=== PATIENT | female | born 1985 | race Caucasian/White ===

== ENCOUNTER 2024-04-26 21:14 | Outpatient (REF) | payer OTHER, SELFPAY ==
[2024-05-02 11:09] LABS: Age Gdln ACOG Testing Note (.); HPV Aptima Negative (Negative); IGP, Aptima HPV, rfx 16/18,45 Note (.)
== END 2024-04-26 21:15 | disposition home or self-care (01) ==
LOC: LAB 21:14
PROVIDERS: Visit Provider Obstetrics & Gynecology
DX: Z01.419 Encounter for gynecological examination (general) (routine) without abnormal findings (principal)
CPT/HCPCS: 87624; 88175

== ENCOUNTER 2024-09-05 16:20 | Outpatient (OUT) | payer OTHER, SELFPAY ==
--- NOTE | 2024-09-05 | MM_ITS ---
Patient Name: REI DAVIS MR#: [id number] : 1985 Exam Date: 09/05/2024 Ordering Doctor: DR Eric Morales . RADIOLOGY REPORT PROCEDURE: MM TOMOSYNTHESIS SCREENING BI COMPARISON: None. INDICATIONS: Screening mammogram Calculator Name NCI Breast Cancer Risk Assessment Tool 5 Year Breast Cancer Risk 0.80% Lifetime Breast Cancer Risk 13.60% Personal Breast Cancer No Personal Ovarian Cancer No Treatments None Family Cancers Grandmother-paternal with breast cancer at age ~83. LOCATION: [facility] BREAST COMPOSITION: There are scattered areas of fibroglandular density. FINDINGS: DIAGNOSTIC CATEGORY 1--NEGATIVE. Scattered benign-appearing calcifications are present. Scattered benign-appearing lymph nodes are present. RIGHT BREAST: No significant suspicious finding. LEFT BREAST: No significant suspicious finding. RECOMMENDATIONS: ROUTINE MAMMOGRAM AND CLINICAL EVALUATION IN 12 MONTHS. PLEASE NOTE: A NORMAL MAMMOGRAM DOES NOT EXCLUDE THE POSSIBILITY OF BREAST CANCER. A CLINICALLY SUSPICIOUS PALPABLE LUMP SHOULD BE BIOPSIED. Dictated by: Tigre Polanco MD on 09/06/2024 at 09:04 Approved by: Tigre Polanco MD on 09/06/2024 at 09:05
== END 2024-09-05 16:21 | disposition home or self-care (01) ==
LOC: MAMMO 16:20
PROVIDERS: Visit Provider Obstetrics & Gynecology
DX: Z12.31 Encounter for screening mammogram for malignant neoplasm of breast (principal); Z80.3 Family history of malignant neoplasm of breast
CPT/HCPCS: 77063; 77067

== ENCOUNTER 2025-09-13 16:18 | Outpatient (OUT) | payer OTHER, SELFPAY ==
--- NOTE | 2025-09-13 16:20 | MM_ITS ---
Patient Name: REI DAVIS MR#: [id number] : 1985 Exam Date: 09/13/2025 Ordering Doctor: DR GIGI MARR . RADIOLOGY REPORT PROCEDURE: MM TOMOSYNTHESIS SCREENING BI COMPARISON: MM TOMOSYNTHESIS SCREENING BI, 09/05/2024. INDICATIONS: Screening for malignant neoplasm Calculator Name NCI Breast Cancer Risk Assessment Tool 5 Year Breast Cancer Risk 0.80% Lifetime Breast Cancer Risk 13.50% Personal Breast Cancer No Personal Ovarian Cancer No Treatments None Family Cancers Grandmother-paternal with breast cancer at age ~83. LOCATION: [facility] BREAST COMPOSITION: There are scattered areas of fibroglandular density. FINDINGS: RIGHT BREAST: No significant suspicious finding. Benign-appearing calcifications noted. LEFT BREAST: No significant suspicious finding. DIAGNOSTIC CATEGORY 2--BENIGN FINDING. NO CHANGE FROM COMPARISON. RECOMMENDATIONS: ROUTINE MAMMOGRAM AND CLINICAL EVALUATION IN 12 MONTHS. Dictated by: Srinivas Patricio MD on 09/14/2025 at 11:13 Approved by: Srinivas Patricio MD on 09/14/2025 at 11:29
--- OUTSIDE RECORDS SUMMARY | 2025-09-13 16:22 | XMS_ITS | Encounter Summary ---
Author Organization [facility] Address [address] [place] [address] Care Team Providers Care Floater Operator Name Role Phone Ursula Ascencio MD Primary Care Provider [phone] Reason for Visit * ReasonCommentsMed Refill Encounter Details DateTypeDepartmentCare Team (Latest Contact Info)Imrgsvwpyvq29/05/2025Refill [facility] [address] [place] [address] Celi Zaldivar NP [address] [place] [address] GRICELDA (generalized anxiety disorder) Social History Tobacco UseTypesPacks/DayYears UsedDateSmoking Tobacco: NeverSmokeless Tobacco: NeverAlcohol UseStandard Drinks/WeekCommentsYes1 (1 standard drink = 0.6 oz pure alcohol)caffeine intake : 1-2 cups per [id number] Health LiteracyAnswerDate RecordedHow often do you need to have someone help you when you read instructions, pamphlets, or other written material from your doctor or pharmacy? Never08/01/2024Humiliation, Afraid, Rape, and Kick questionnaireAnswerDate RecordedWithin the last year, have you been afraid of your partner or ex-partner?No07/11/2023Within the last year, have you been humiliated or emotionally abused in other ways by your partner or ex-partner?No07/11/2023 Within the last year, have you been kicked, hit, slapped, or otherwise physically hurt by your partner or ex-partner?No07/11/2023Within the last year, have you been raped or forced to have any kind of sexual activity by your part ner or ex-partner?No07/11/2023Social Connection and Isolation PanelAnswerDate RecordedIn a typical week, how many times do you talk on the phone with family, friends, or neighbors?More than three times a week08/01/2024How often do you get together with friends or relatives?Once a week08/01/2024How often do you attend religion or baptism services?1 to 4 times per year08/01/2024o you belong to any clubs or organizations such as religion groups, unions, fraternal or athletic olaf ups, or school groups?No08/01/2024How often do you attend meetings of the clubs or organizations you belong to?Never08/01/2024re you , , , , never , or living with a partner?Zopoyto7508/01/2024 AUDIT-CAnswerDate RecordedQ1: How often do you have a drink containing alcohol? 2-4 times a month08/01/2024Q2: How many drinks containing alcohol do you have on a typical day when you are drinking?1 or Q3: How often do you have six or more drinks on one occasion?Less than xvzpqny7208/01/2024Overall Financial Resource Strain (CARDIA)AnswerDate RecordedHow hard is it for you to pay for the very basics like food, housing, medical care, and heating?Not hard at all 08/01/2024HQ-2AnswerDate RecordedPatient Health Questionnaire-2 Score0 02/12/2025[facility] [place] [facility] - Occupational Stress QuestionnaireAnswerDate RecordedDo you feel stress - tense, restless, nervous, or anxious, or unable to sleep at night because yourmind is troubled all the time - these days?Only a bgzowp6708/01/2024Exercise Vital SignAnswerDate Recorded On average, how many days per week do you engage in moderate to strenuous exercise (like a brisk walk)?3 days08/01/2024On average, how many minutes do you engage in exercise at this level?20 min08/01/2024Hunger Vital SignAnswerDate RecordedWithin the past 12 months, you worried that your food would run out before you got the money to buymore.Never true08/01/2024Within the past 12 months, the food you bought just didn't last and you didn't have money to get more.Never true08/01/2024RAPARE - TransportationAnswerDate RecordedIn the past 12 months, has lack of transportation kept you from medical appointments or from getting medications?No08/01/2024In the past 12 months, has lack of transportation kept you from meetings, work, or from getting things needed for daily living?No08/01/2024Housing Stability Vital SignAnswerDate RecordedIn the last 12 months, was there a time when you were not able to pay the mortgage or rent on time?No07/11/2023In the last 12 months, how many places have you lived?1 07/11/2023In the last 12 months, was there a time when you did not have a steady place to sleep or slept in [facility] (including now)?No07/11/2023Housing Stability Vital SignAnswerDate RecordedIn the last 12 months, was there a time when you were not able to pay the mortgage or rent on time?No08/01/2024Number of Times Moved in the Last YearNot on file08/01/2024t any time in the past 12 months, were you homeless or living in a fdc (including now)?No08/01/2024 CommentsNoSex and Gender InformationValueDate RecordedSex Assigned at BirthNot on fileLegal NsyHcrfal40/15/2023 7:05 PM EDTGender IdentityFemale 05/30/2023 1:59 PM EDTSexual OrientationNot on filedocumented as of this encounter Plan of Treatment DateTypeDepartmentCare Team (Latest Contact Info)Ntmuypvtici65/18/2026 3:00 PM EDTProcedure Visit [facility] [address] [place] [id number] Eric Morales DO [address] [place] [address] documented as of this encounter Visit Diagnoses Diagnosis GRICELDA (generalized anxiety disorder) Generalized anxiety disorder documented in this encounter Care Teams Team MemberRelationshipSpecialtyStart DateEnd Ursula Ascencio MD [address] [place] [address] PCP - GeneralFamily Medicine03/02/23documented as of this encounter
--- OUTSIDE RECORDS SUMMARY | 2025-09-13 16:22 | XMS_ITS | Clinical Summary ---
Author Organization [facility] Address [address] [place] [address] Care Team Providers Care Parts Counterman Name Role Phone Ursula Ascencio MD Primary Care Provider [phone] Allergies No known active allergies Medications MedicationSigDispense QuantityRefillsLast FilledStart DateEnd DateStatus Atogepant (Qulipta) 60 MG tablet Indications:Migraine with aura and without status migrainosus, not intractable Take 1 tablet by mouth Daily 90 tablet 5Active sertraline (Zoloft) 25 MG tablet Indications:GRICELDA (generalized anxiety disorder)Take 1 tablet (25 mg) by mouth Daily 90 tablet 6Active sertraline (Zoloft) 25 MG tablet Indications:GRICELDA (generalized anxiety disorder)Take 1 tablet (25 mg) by mouth Daily 30 tablet Discontinued Tirzepatide-Weight Management (Zepbound) 15 MG/0.5ML solution Indications:BMI 31.0-31.9,adultInject 15 mg under the skin 1 (one) time per week for 28 days 2 mL Expired Ubrogepant (Ubrelvy) 100 MG tablet Indications:Migraine with aura and without status migrainosus, not intractable Take 100 mg by mouth if needed (migraines) for up to 13 days 13 tablet Expired Active Problems ProblemNoted DateDiagnosed DateGAD (generalized anxiety disorder)07/12/2023 Yblesjylfyuxdsf11/18/2023Migraine with aura and without status migrainosus, not ywvtcivjsaw82/18/2023Morbid tlfiehw8507/12/2023atellofemoral disorder of right knee07/12/20232887Tienkpdxwwn08/18/2023Right anterior knee pain07/12/2023Stage 3a chronic kidney kjqwwyg8907/12/2023 Encounters DateTypeDepartmentCare VlaxLzclogrubwq15/05/2025Refill [facility] [address] [place] [address] Celi Zaldivar NP GRICELDA (generalized anxiety disorder)08/13/2025Telephone [facility] [address] [place] [address] Deirdre Delgado Prior Mixdtkwwoxlow52/14/2025Orders Only [facility] [address] [place] [address] Celi Zaldivar NP Elevated alkaline phosphatase level (Primary Dx)08/07/2025Results Follow-Up [facility] [address] [place] [address] Celi Zaldivar NP [facility] VITAMIN D 25 RLDHZQZ47/13/2025Clinisync Result Encounter [facility] External Department Unsolicited Celi Zaldivar NP 08/03/2025Results Follow-Up [facility] [address] [place] [phone] Celi Zaldivar NP [facility] CMP, [facility] GGT, [facility] EGFR08/03/2025Refill [facility] [address] [place] [address] Ursula Ascencio MD Migraine with aura and without status migrainosus, not intractable (Primary Dx) 5Clinisync Result Encounter [facility] External Department Unsolicited Celi Zaldivar NP 08/03/2025Results Follow-Up [facility] [address] [place] [phone] Celi Zaldivar, JARETT Comprehensive metabolic panel, Lipid panel, TSH RFX ON ABNORMAL TO FREE T4, Additional followed-up results: Orders Only [facility] [address] [place] [address] Celi Zaldivar NP BMI 31.0-31.9,adult (Primary Dx)07/27/2025 1:40 PM EDTOffice Visit [facility] [address] [place] [address] Celi Zaldivar NP Fever, unspecified fever cause (Primary Dx); Body aches; Flu-like symptoms; BMI 31.0-31.9,adult; Nonintractable headache, unspecified chronicity pattern, unspecified headache type; Screening for lipid disorders; Screening for heart disease; Screening for thyroid disorder; GRICELDA (generalized anxiety disorder)07/27/2025Travelfrom Last 3 Months Immunizations ImmunizationAdministration DatesNext ZoiTYN6705/16/1990Hep B, Adolescent or Pstbyzscl12/06/2009,07/30/2009Hep B, adult07/24/2016Influenza, Unspecified 07/28/2019Influenza, recombinant, quadrivalent, injectable, preservative free 10/29/2021Influenza, seasonal, vrwmonwjfw34/26/2023Influenza, seasonal, injectable, preservative free09/04/2024Influenza, seasonal, intradermal, preservative free08/20/2022MMR07/10/2018,06/20/1997OPV05/16/1990Td (adult), 5 Lf tetanus toxoid, preservative free, dddbvefq49/14/2018 Family History Medical HistoryRelationNameCommentsBreast cancerPaternal GrandmotherGrandma CancerPaternal GrandmotherGrandmaRelationNameStatusCommentsDaughterAliveFather DeceasedMotherAlivePaternal GrandmotherGrandmaSiblingAliveSonAlive Social History Tobacco UseTypesPacks/DayYears UsedDateSmoking Tobacco: NeverSmokeless Tobacco: Never Tobacco Cessation:Counseling Given: Not Answered Alcohol UseStandard Drinks/WeekCommentsYes1 (1 standard drink = 0.6 oz pure alcohol)caffeine intake : 1-2 cups per thmO2416 Health LiteracyAnswerDate RecordedHow often do you need [...] relatives?Once a week08/01/2024How often do you attend latter-day or mandaeism services?1 to 4 times per year08/01/2024o you belong to any clubs or organizations such as latter-day groups, unions, fraternal or athletic olaf ups, or school groups?No08/01/2024How often do you attend meetings of the clubs or organizations you belong to?Never08/01/2024re you , , , , never , or living with a partner?Xmcfktl3908/01/2024 AUDIT-CAnswerDate RecordedQ1: How often do you have a drink containing alcohol? 2-4 times a month08/01/2024Q2: How many drinks containing alcohol do you have on a typical day when you are drinking?1 or Q3: How often do you have six or more drinks on one occasion?Less than mtmfufk5108/01/2024Overall Financial Resource Strain (CARDIA)AnswerDate RecordedHow hard is it for you to pay for the very basics like food, housing, medical care, and heating?Not hard at all 08/01/2024HQ-2AnswerDate RecordedPatient Health Questionnaire-2 Score0 02/12/2025[facility] - Occupational Stress QuestionnaireAnswerDate RecordedDo you feel stress - tense, restless, nervous, or anxious, or unable to sleep at night because yourmind is troubled all the time - these days?Only a mzeyzo4708/01/2024Exercise Vital SignAnswerDate Recorded On average, how many [...] steady place to sleep or slept in [place] (including now)?No07/11/2023Housing Stability Vital SignAnswerDate RecordedIn the last 12 months, was there a time when you were not able to pay the mortgage or rent on time?No08/01/2024Number of Times Moved in the Last YearNot on file08/01/2024t any time in the past 12 months, were you homeless or living in a jail (including now)?No08/01/2024 CommentsNoSex and Gender InformationValueDate RecordedSex Assigned at BirthNot on fileLegal EemSwbvcl55/15/2023 7:05 PM EDTGender IdentityFemale 05/30/2023 1:59 PM EDTSexual OrientationNot on file Last Filed Vital Signs Vital SignReadingTime TakenCommentsBlood Jvviwtrv526/7410 1:47 PM EDT Cnpfw817807/27/2025 1:47 PM UGZAtitcxumkds28.8 ??C (98.2 ??F)07/27/2025 1:47 PM EDTRespiratory Rate--Oxygen Tkjvtfgzlb37%07/27/2025 1:47 PM EDTInhaled Oxygen Concentration--Ilqyna95.2 kg (190 lb)07/27/2025 1:47 PM HDPShegys373.1 cm (5' 5 )07/27/2025 1:47 PM EDTBody Mass Index31.6207/27/2025 1:47 PM EDT Plan of Treatment DateTypeDepartmentCare Team (Latest Contact Info)Edvfuzmjgdu23/18/2026 3:00 PM EDTProcedure Visit N[facility] [address] [place] [address] Eric Morales DO [address] [place], [place] [id number] Health MaintenanceDue DateLast DoneCommentsCOVID-19 Vaccine ( season) , 11/19/2020, 10/22/2020Influenza Vaccine (#1)2025 09/04/2024, 08/19/2023, 08/20/2022, Additional history zmgtrpIhgddcwqn93/13/2025 09/06/2024ervical Cancer Nbvrauwsd62/03/2029HPV/Xdnarc1904/26/2029Pap Smear 4Pneumococcal Vaccine: Pediatrics (0 to 5 Years) and At-Risk Patients (6 to 64 Years)Aged OutNo longer eligible based on patient's age to complete this topic Procedures Procedure NamePriorityDate/TimeAssociated DiagnosisComments[facility] D 25 PCBCHARAcddtin78/13/2025 4:10 PM EDT [facility] OHWXGgqktjr23/10/2025 9:33 AM EDT [facility] KRPQeuoshv30/10/2025 9:33 AM EDT [facility] OKFTrwvvyw65/10/2025 9:33 AM EDT H7ZPjfesyu59/09/2025 8:35 AM EDT TSH RFX ON ABNORMAL TO FREE Z3Ijkicjs55/09/2025 8:35 AM EDT Screening for thyroid disorder LIPID PFFIPDczrtjh58/09/2025 8:35 AM EDT Screening for lipid disorders Screening for heart disease COMPREHENSIVE METABOLIC IIRHVXnnmfxn56/09/2025 8:35 AM EDT Screening for lipid disorders Screening for heart disease POCT COVID CIWKWIBBnkeevb83/03/2025 2:33 PM EDT Body aches POCT INFLUENZA A/BXifqilr76/03/2025 2:32 PM EDT Body aches MM TOMOSYNTHESIS SCREENING BI09/06/2024 9:05 AM EST PAP BVUKTZiwgqon41/03/2024 12:00 AM EDTfrom Last 3 Months or Most Recently Relevant to Health Maintenance Results * [facility] VITAMIN D 25 HYDROXY (08/06/2025 4:10 PM EDT)ComponentValueRef RangeTest MethodAnalysis TimePerformed AtPathologist SignatureVITAMIN D 25 IBODEXQ40.0 30.0 - 100.0 ng/mLFTMCSpecimen (Source)Anatomical Location / Laterality Collection Method / VolumeCollection TimeReceived HbooZspwm48/13/2025 4:10 PM EDT1 4:32 PM EDT Narrative [facility] - 08/06/2025 5:26 PM EDT Original Ordering Provider: MARTIN ZALDIVAR Authorizing ProviderResult TypeResult StatusCeli Zaldivar NPCLINISYNCFinal ResultPerforming OrganizationAddressCity/State/ZIP CodePhone Number CL[facility]IS[facility]NC [facility] * [facility] GGT (08/03/2025 9:33 AM EDT)ComponentValueRef RangeTest MethodAnalysis TimePerformed AtPathologist UalldlrrfBKG199 - 48 Int._Unit/LFTMCSpecimen (Source)Anatomical Location / LateralityCollection Method / VolumeCollection TimeReceived GlouToylt43/10/2025 9:33 AM EDT1 10:21 AM EDT Narrative [facility] - 08/03/2025 10:48 AM EDT Original Ordering Provider: MARTIN ZALDIVAR Authorizing ProviderResult TypeResult StatusCeli Zaldivar NPCLINISYNCFinal ResultPerforming OrganizationAddressCity/State/ZIP CodePhone Number CL[facility]IS[facility]NC [facility] * [facility] EGFR (08/03/2025 9:33 AM EDT)ComponentValueRef RangeTest MethodAnalysis TimePerformed AtPathologist SignatureHARPER COUNTY [facility] EGFR82>=59 mL/min/1.73 m2[facility] Specimen (Source)Anatomical Location / LateralityCollection Method / Volume Collection TimeReceived PhggFrzjq42/10/2025 9:33 AM EDT1 10:21 AM EDT Narrative CLIN[facility]NC - 08/03/2025 10:48 AM EDT Original Ordering Provider: MARTIN ZALDIVAR Authorizing ProviderResult TypeResult StatusCeli Zaldivar NPCLINISYNCFinal ResultPerforming OrganizationAddressCity/State/ZIP CodePhone Number CLINISYNC [facility] * (ABNORMAL) [facility] CMP (08/03/2025 9:33 AM EDT)ComponentValueRef RangeTest Method Analysis TimePerformed AtPathologist SignatureHARPER [facility] GLUCOSE CBY4704 - 199 mg/dL [facility]FT BUN95 - 21 mg/dLSELECT [facility] CREATININE0.90.5 - 1.3 mg/dLSELECT [facility] CALCIUM LVL9.08.9 - 11.1 mg/dLSELECT [facility] SODIUM TVJ414765 - 145 mmol/LFTMCFTMC POTASSIUM 4.13.5 - 5.3 mmol/LFTMCFTMC NUJILVFD990287 - 111 mmol/LFTMCFTMC QS17206 - 31 mmol/LFTMCFTMC ALK SZAR031(H)21 - 98 Int._Unit/LFTMCFTMC BILI TOTAL0.60.0 - 1.1 mg/dLSELECT [facility] ALBUMIN LVL4.23.3 - 5.0 gm/dLSELECT [facility] TOTAL PROTEIN7.36.0 - 7.8 gm/dLSELECT [facility] ALT57(H)6 - 46 Int._Unit/LFTMCFTMC EEJ227 - 43 Int._Unit/L [facility] BUN/CREAT DIKTG1465 - 20 No UnitsSELECT [facility]TY [facility] AGAP86 - 16 mEq/LFTMCFTMC GLOBULIN3.11.4 - 4.0 gm/dLSELECT [facility]TY [facility] A/G RATIO1.41.1 - 2.2FTMCSpecimen (Source) Anatomical Location / LateralityCollection Method / VolumeCollection Time Received YmbhIqrue71/10/2025 9:33 AM EDT1 10:21 AM EDT Narrative CLINISYNC - 08/03/2025 10:48 AM EDT Original Ordering Provider: MARTIN ZALDIVAR Authorizing ProviderResult TypeResult StatusCeli Zaldivar NPCLINISYNCFinal ResultPerforming OrganizationAddressCity/State/ZIP CodePhone Number [facility] * T4F (08/02/2025 8:35 AM EDT)ComponentValueRef RangeTest MethodAnalysis Time Performed AtPathologist SignatureT4,FREE (DIRECT)1.160.82 - 1.77 ng/dLLABCORP Specimen (Source)Anatomical Location / LateralityCollection Method / Volume Collection TimeReceived Time08/02/2025 8:35 AM EDT1 Narrative [facility] - 08/03/2025 8:35 AM EDT Performed at: 01 - [facility], [place], [place] ??[id number] Art Coordinator: Abner Rodriguez PhD, Phone: ??[phone] Authorizing ProviderResult TypeResult StatusCeli Zaldivar LAB BLOOD ORDERABLESFinal ResultPerforming OrganizationAddressCity/State/ZIP CodePhone Number [facility] * (ABNORMAL) TSH RFX ON ABNORMAL TO FREE T4 (08/02/2025 8:35 AM EDT)Component ValueRef RangeTest MethodAnalysis TimePerformed AtPathologist SignatureTSH W/REFLEX TO FT40.316(L)0.450 - 4.500 uIU/mLLABCORPSpecimen (Source)Anatomical Location / LateralityCollection Method / VolumeCollection TimeReceived Time 08/02/2025 8:35 AM EDT1 Narrative [facility] - 08/03/2025 8:35 AM EDT Performed at: - [address] ??[id number] Art Coordinator: Abner Rodriguez PhD, Phone: ??[phone] Authorizing ProviderResult TypeResult StatusDaoumou Aggie [facility] HospitalLAB BLOOD ORDERABLESFinal ResultPerforming OrganizationAddressCity/State/ZIP CodePhone Number [facility] * (ABNORMAL) Lipid panel (08/02/2025 8:35 AM EDT)ComponentValueRef RangeTest MethodAnalysis TimePerformed AtPathologist SignatureCholesterol, Ttmla769122 - 199 mg/oUNZZFDZPYjnoecewtaztu732 - 149 mg/dLLABCORPHDL Qiihzwewhxi49(L)>39 mg/dLLABCORPVLDL Cholesterol Hgs202 - 40 mg/dLLABCORPLDL Chol Calc (NIH)145(H) 0 - 99 mg/dLLABCORPSpecimen (Source)Anatomical Location / LateralityCollection Method / VolumeCollection TimeReceived TimeBloodVenous blood specimen / Tgvndzk6508/02/2025 8:35 AM EDT1 Narrative [facility] - 08/03/2025 8:35 AM EDT Performed at: [facility] ??[id number] Art Coordinator: Abner Rodriguez PhD, Phone: ??[phone] Authorizing ProviderResult TypeResult StatusDaoumou Aggie [facility] HospitalLAB BLOOD ORDERABLESFinal ResultPerforming OrganizationAddressCity/State/ZIP CodePhone Number [facility] * (ABNORMAL) Comprehensive metabolic panel (08/02/2025 8:35 AM EDT)Component ValueRef RangeTest MethodAnalysis TimePerformed AtPathologist SignatureGlucose 7870 - 99 mg/yZTVPEZNSENS30 - 24 mg/dLLABCORPCreat0.910.57 - 1.00 mg/dLLABCORP EGFR81>59 mL/min/1.73LABCORPBUN/Creat Mcxjf693 - 64RRALWQALbpfgk915019 - 144 mmol/[facility]PPotassium4.33.5 - 5.2 mmol/BKGHEUSSGzzxoygv07678 - 106 mmol/L LABCORPCarbon Gclnjax0229 - 29 mmol/[facility]ABCORPCalcium8.98.7 - 10.2 mg/dLLABCORP Protein Total6.66.0 - 8.5 g/dLLABCORPAlbumin4.13.9 - 4.9 g/dLLABCORPGlobulin Total2.51.5 - 4.5 g/dLLABCORPBili Total0.50.0 - 1.2 mg/dLLABCORPAlk Objrpqpcvnh703(H)41 - 116 IU/KEMNVEOVFPA005 - 40 IU/CWZSYURUVKN13(H)0 - 32 IU/[facility]ABC[facility]PSpecimen (Source)Anatomical Location / LateralityCollection Method / VolumeCollection TimeReceived TimeBloodVenous blood specimen / Unknown 08/02/2025 8:35 AM EDT1 Narrative [facility] - 08/03/2025 8:35 AM EDT Performed at: [address] ??[id number] Art Coordinator: Abner Rodriguez PhD, Phone: ??[phone] Authorizing ProviderResult TypeResult StatusDaoumou Zaldivar MAHOGANY BLOOD ORDERABLESFinal ResultPerforming OrganizationAddressCity/State/ZIP CodePhone Number [facility] * POCT COVID ANTIGEN (07/27/2025 2:33 PM EDT)ComponentValueRef RangeTest Method Analysis TimePerformed AtPathologist SignatureCOVID 19negativeSpecimen (Source)Anatomical Location / LateralityCollection Method / VolumeCollection TimeReceived DyclRikhv79/03/2025 2:33 PM EDT Narrative Authorizing ProviderResult TypeResult StatusDaoumou Zaldivar NPPOINT OF CARE TEST ENTER/EDIT ORDERABLESFinal Result * POCT Influenza A/B manually resulted (07/27/2025 2:32 PM EDT)ComponentValueRef RangeTest MethodAnalysis TimePerformed AtPathologist SignatureRapid Influenza A AgNegativeNegative, IndeterminateRapid Influenza B AgNegativeNegative, IndeterminateSpecimen (Source)Anatomical Location / LateralityCollection Method / VolumeCollection TimeReceived DongKosd86/03/2025 2:32 PM EDT Narrative Authorizing ProviderResult TypeResult StatusDaoumou Zaldivar NPPOINT OF CARE TEST ENTER/EDIT ORDERABLESFinal Result * MM TOMOSYNTHESIS SCREENING BI (09/06/2024 9:05 AM EST)Anatomical Region LateralityModalityOtherSpecimen (Source)Anatomical Location / Laterality Collection Method / VolumeCollection TimeReceived Time09/06/2024 9:05 AM EST Narrative 09/06/2024 9:06 AM EST [facility] ?[address] ? [place] [address] ? Mammography Report ? Signed ? Patient: SUSAN,REI E ?MR#: [id number] ?? : 1985 ?Acct:[id number] ?? Age/Sex: 39 / F ?ADM Date: 09/05/24 ?? Loc: MAMMO ? Attending Dr: Eric Morales D.O. ? Ordering Physician: Eric Morales D.O. ?Results: ? Date of Service: 09/05/24 ?Follow Up: ? Procedure(s): MM tomosynthesis screening BI ?? Accession Number(s): [id number] ? cc: Eric Morales D.O.; Physician,Non-Staff [place]. ? Patient Name: ? REI FRANCIS ? MR#: [id number] ? : 1985 ? Exam Date: 09/05/2024 ?? Ordering Doctor: DR Eric Morales . ? RADIOLOGY REPORT ? PROCEDURE: ? MM TOMOSYNTHESIS SCREENING BI ? COMPARISON: ? None. ? INDICATIONS: ? Screening mammogram ? Calculator Name ? NCI Breast Cancer Risk Assessment Tool ?? 5 Year Breast Cancer Risk ? 0.80% ?? Lifetime Breast Cancer Risk ? 13.60% ?? Personal Breast Cancer ?No ?? Personal Ovarian Cancer ? No ?? Treatments ? None ?? Family Cancers ? Grandmother-paternal with breast cancer at age ??83. ? LOCATION: ? [facility] ? BREAST COMPOSITION: ? There are scattered areas of fibroglandular density. ? FINDINGS: ? DIAGNOSTIC CATEGORY 1--NEGATIVE. ? Scattered benign-appearing calcifications are present. ??Scattered ?? benign-appearing lymph nodes are present. ? RIGHT BREAST: ??No significant suspicious finding. ? LEFT BREAST: ??No significant suspicious finding. ? RECOMMENDATIONS: ? ROUTINE MAMMOGRAM AND CLINICAL EVALUATION IN 12 MONTHS. ? PLEASE NOTE: ??A NORMAL MAMMOGRAM DOES NOT EXCLUDE THE POSSIBILITY OF BREAST ?? CANCER. ??A CLINICALLY SUSPICIOUS PALPABLE LUMP SHOULD BE BIOPSIED. ? Dictated by: Tigre Polanco MD on 09/06/2024 at 09:04 ? Approved by: Tigre Polanco MD on 09/06/2024 at 09:05 ? Dictated By: ?Tigre Polanco M.D. ? Signed By: ?09/06/24 0906 ? DD/ 0905 ? TD/TT: ? Pickling Operator: Procedure Note Radiology, Radiologist, - 09/06/2024 [place] [address] Mammography Report Signed Patient: REI FRANCIS EMR#: [id number] : 1985Acct:[id number] Age/Sex: 39 / FADM Date: 09/05/24 Loc: MAMMO Attending Dr: Eric Morales D.O. Ordering Physician: Eric Morales D.O.Results: Date of Service: 09/05/24Follow Up: Procedure(s): MM tomosynthesis screening BI Accession Number(s): [id number] cc: Eric Morales D.O.; Physician,Non-Staff Mikal Patient Name: REI FRANCIS MR#: [id number] : 1985 Exam Date: 09/05/2024 Ordering Doctor: DR Eric Morales . RADIOLOGY REPORT PROCEDURE: MM TOMOSYNTHESIS SCREENING BI COMPARISON: None. INDICATIONS: Screening mammogram Calculator Name NCI Breast Cancer Risk Assessment Tool 5 Year Breast Cancer Risk 0.80% Lifetime Breast Cancer Risk 13.60% Personal Breast Cancer No Personal Ovarian Cancer No Treatments None Family Cancers Grandmother-paternal with breast cancer at age 83. LOCATION: [facility] BREAST COMPOSITION: There are scattered areas of fibroglandulardensity. FINDINGS: DIAGNOSTIC CATEGORY 1--NEGATIVE. Scattered benign-appearing calcifications are present. Scattered benign-appearing lymph nodes are present. RIGHT BREAST: No significant suspicious finding. LEFT BREAST: No significant suspicious finding. RECOMMENDATIONS: ROUTINE MAMMOGRAM AND CLINICAL EVALUATION IN 12 MONTHS. PLEASE NOTE: A NORMAL MAMMOGRAM DOES NOT EXCLUDE THE POSSIBILITY OFBREAST CANCER. A CLINICALLY SUSPICIOUS PALPABLE LUMP SHOULD BE BIOPSIED. Dictated by: Tigre Polanco MD on 09/06/2024 at 09:04 Approved by: Tigre Polanco MD on 09/06/2024 at 09:05 Dictated By: Tigre Polanco M.D. Signed By:09/06/24905 DD/ 4 TD/TT: Pickling Operator: Authorizing ProviderResult TypeResult StatusCorey Carmen DOCLINISYNC IMAGINGFinal Result * Pap Smear (04/26/2024 12:00 AM EDT)Specimen (Source)Anatomical Location / LateralityCollection Method / VolumeCollection TimeReceived TimeSwabCervical swab / Unknown Narrative Authorizing ProviderResult TypeResult StatusCorey Carmen DOLAB CYTOLOGY ORDERABLESFinal ResultPerforming OrganizationAddressCity/State/ZIP CodePhone Number EXTERNAL LAB from Last 3 Months or Most Recently Relevant to Health Maintenance Insurance Care Teams Team MemberRelationshipSpecialtyStart DateEnd Ursula Ascencio MD [address] [place] [address] PCP - Generalmi Medicine03/02/23
--- OUTSIDE RECORDS SUMMARY | 2025-09-13 16:22 | XMS_ITS | Clinical Summary ---
Author Organization [facility]ce T[facility] Address [address], [address] [place] [address] Care Team Providers Care Personnel Placement Specialist Name Role Phone Unavailable Primary Care Provider Unavailabl e Immunizations ImmunizationAdministration DatesNext DueInfluenza Virus Vxplpxp1507/28/2019 Social History Tobacco UseTypesPacks/DayYears UsedDateSmoking Tobacco: Never Assessed CommentsUnknownSex and Gender InformationValueDate RecordedSex Assigned at Not on fileLegal WcsXiyfvh99/19/2019 4:33 PM EDTGender IdentityNot on fileSexual OrientationNot on file Plan of Treatment Not on file Insurance MemberSubscriberPlan / Payer (Effective 2019-Present)Name:Qi Francis Relation to Subscriber:SelfName:Qi Francis Payer ID:Not on file Type:Not on file Address: [address] [place] [id number]
== END 2025-09-13 16:19 | disposition home or self-care (01) ==
LOC: MAMMO 16:18
PROVIDERS: PCP Nurse Practitioner Family; Visit Provider Obstetrics & Gynecology
DX: Z12.31 Encounter for screening mammogram for malignant neoplasm of breast (principal); Z80.3 Family history of malignant neoplasm of breast
CPT/HCPCS: 77063; 77067